=== PATIENT | female | born 1960 | race Caucasian/White ===

== ENCOUNTER → 2017-05-07 | Outpatient (CLI) | payer BC ==
--- NOTE | 2017-05-08 09:31 | KCIC ---
DATE: 05/08/2017. EXAM: MAMMO PANCHO SCREENING BILATERAL. HISTORY: Routine mammographic screening. COMPARISON: 05/02/2016, 04/20/2015, 04/20/2014, 04/14/2013. This study was interpreted with the benefit of Computerized Aided Detection (CAD). FINDINGS: The breast parenchyma is dense, which could reduce sensitivity of mammography. Breast parenchyma level density D.. A new dense focus superiorly on the left MLO view posteriorly may correspond with a dense focus medially on the CC tomographic image #44. This was not clearly seen previously. Scattered calcifications elsewhere appear stable and benign. There is no suspicious finding on the right. BI-RADS CATEGORY: 0 INCOMPLETE: NEEDS ADDITIONAL IMAGING EVALUATION AND/OR PRIOR MAMMOGRAMS FOR COMPARISON.. RECOMMENDED FOLLOW-UP: ADD ADDITIONAL IMAGING. Recommend spot compression of a dense focus superiorly on the left MLO view, possibly corresponding with the density medially on the left CC view. See annotations. Sonography if necessary. PQRS compliance statement: Patient information was entered into a reminder system with a target due date (now) for the next mammogram. Mammography is a sensitive method for finding small breast cancers, but it does not detect them all and is not a substitute for careful clinical examination. A negative mammogram does not negate a clinically suspicious finding and should not result in delay in biopsying a clinically suspicious abnormality. "Our facility is accredited by the [employer] Mammography [employer]."
== END | disposition home or self-care (01) ==
LOC: KCIC MAMMO 13:38
PROVIDERS: ATTEND Obstetrics & Gynecology
DX: Z12.31 Encounter for screening mammogram for malignant neoplasm of breast (principal)
CPT/HCPCS: 77063; G0202; 77067

== ENCOUNTER → 2017-05-22 | Outpatient (CLI) | payer BC ==
--- NOTE | 2017-05-22 14:14 | KCIC ---
DATE: May 22, 2017 EXAM: DIGITAL DIAGNOSTIC LT HISTORY: Further evaluation of nodule seen posteriorly and medially within the left breast on screening mammogram. COMPARISON: May 07, 2017 screening mammogram This study was interpreted with the benefit of Computerized Aided Detection (CAD). FINDINGS: Focal digital magnification compression views of the left breast in the MLO and CC projections were performed. The previously seen nodular density resolves with the additional views consistent with a benign finding. IMPRESSION: Benign finding of the left breast. Recommend routine screening mammography in one year. BI-RADS CATEGORY: 2 BENIGN FINDING RECOMMENDED FOLLOW-UP: 12M 12 MONTH FOLLOW-UP PQRS compliance statement: Patient information was entered into a reminder system with a target due date May 08, 2018 for the next mammogram. Mammography is a sensitive method for finding small breast cancers, but it does not detect them all and is not a substitute for careful clinical examination. A negative mammogram does not negate a clinically suspicious finding and should not result in delay in biopsying a clinically suspicious abnormality. "Our facility is accredited by the [employer] Mammography [employer]."
== END | disposition home or self-care (01) ==
LOC: KCIC MAMMO 12:35
PROVIDERS: ATTEND Obstetrics & Gynecology
DX: N63.20 Unspecified lump in the left breast, unspecified quadrant (principal)
CPT/HCPCS: G0206; 77065